=== PATIENT | male | born 1965 | race Caucasian/White ===

== ENCOUNTER 2018-08-30 06:47 | Emergency (ER) | payer OTHER ==
[2018-08-30 06:57] VITALS: TEMP 97.5
[2018-08-30] MEDS ORDERED: SODIUM CHLORIDE 0.9% 500 ML 500 ML IV ONE (07:34)
[2018-08-30 07:58] LABS: BASOPHILS % (AUTO) 1 % (0-3); EOSINOPHILS % (AUTO) 1 % (0-9); HEMATOCRIT 49 % (39-53); HEMOGLOBIN 15.8 gm/dl (13.5-17.7); LYMPHOCYTES % (AUTO) 18.7 % (10-50); MEAN CORPUSCULAR HEMOGLOBIN 27.9 pg (27.0-32.0); MEAN CORPUSCULAR HGB CONC 32.3 gm/dl (32.0-36.0); MEAN CORPUSCULAR VOLUME 86 fL (80-100); MONOCYTES % (AUTO) 7.4 % (0-12); NEUTROPHILS % (AUTO) 72.4 % (37-80)
[2018-08-30 08:13] LABS: ALBUMIN 4.1 gm/dl (3.4-5.0); ALKALINE PHOSPHATASE 72 IU/L (46-116); ALT 25 IU/L (14-63); AST 17 IU/L (15-37); BILIRUBIN,TOTAL 0.4 mg/dl (0.2-1.0); BLOOD UREA NITROGEN 14 mg/dl (7-18); CALCIUM 8.9 mg/dl (8.5-10.1); CARBON DIOXIDE 27.6 mEq/L (21-32); CHLORIDE 103 mMol/L (98-107); CREATININE 0.85 mg/dl (0.80-1.30); GLUCOSE 97 mg/dl (74-106); POTASSIUM 4.3 mMol/L (3.5-5.1); SODIUM 138 mMol/L (136-145); TOTAL PROTEIN 8.4 gm/dl (6.4-8.2); TROP I < 0.017 ng/ml (0.000-0.056)
[2018-08-30 08:25] VITALS: RESP 20
[2018-08-30 08:44] VITALS: O2SAT 99
[2018-08-30 10:34] VITALS: PULSE 68
[2018-08-30] MEDS ORDERED: ASPIRIN 81 MG CHEWABLE CTB PO ONE (10:53)
[2018-08-30 11:07] VITALS: BP 155/99
[2018-08-30] MEDS ORDERED: ASPIRIN 81 MG CHEWABLE CTB ONE (11:09)
== END 2018-08-30 11:27 | disposition home or self-care (01) | DRG 93 ==
LOC: ED 06:47
DX: R20.0 Anesthesia of skin (principal); R25.2 Cramp and spasm; M79.601 Pain in right arm
CPT/HCPCS: 70450; 70544; 70549; 70551; 80053; 84484; 85025; 85610; 85730; 93005; 96365; 99283; 99285; A9585